=== PATIENT | female | born 1980 | race Caucasian/White ===

== ENCOUNTER → 2021-06-26 16:50 | Outpatient (CLI) | payer OTHER, SELFPAY ==
--- NOTE | ~2021-06-26 | MM_ITS ---
EXAMINATION: MM screening lydia BI w chacorta HISTORY: Screening mammogram TECHNIQUE: Craniocaudal and mediolateral oblique 3-D tomosynthesis images were obtained and synthetic 2-D images were generated. CAD analysis was submitted and interpreted. COMPARISON: 07/18/2015 bilateral screening mammogram BREAST PARENCHYMAL COMPOSITION: The breasts are heterogeneously dense, which may obscure small masses . FINDINGS: There is no evidence of suspicious mass, calcification, or architectural distortion to sugg est malignancy in either breast. There has been no suspicious interval change. IMPRESSION: 1. No mammographic evidence of malignancy. 2. Recommend routine screening mammography in one year. BI-RADS Category 1: Negative Reviewed, dictated and finalized at location A. N RESOURCES MGR
== END ==
PROVIDERS: Visit Provider Nurse Practitioner
DX: Z12.31 Encounter for screening mammogram for malignant neoplasm of breast (principal)
CPT/HCPCS: 77063; 77067

== ENCOUNTER 2023-10-22 07:22 | Outpatient (CLI) | payer OTHER, SELFPAY ==
--- NOTE | ~2023-10-22 | MM_ITS ---
EXAMINATION: MM screening lydia BI w chacorta HISTORY: Screening mammogram TECHNIQUE: Craniocaudal and mediolateral oblique 3-D tomosynthesis images were obtained and synthetic 2-D images were generated. CAD analysis was submitted and interpreted. COMPARISON: 06/26/2021, 07/18/2015 bilateral screening mammogram examinations BREAST PARENCHYMAL COMPOSITION: The breasts are heterogeneously dense, which may obscure small masses . FINDINGS: Is increased density in the subareolar area of the right breast particularly on CC projecti on compared to 06/26/2021. Diagnostic right mammogram is recommended, with ultrasound if required. Otherwise no suspicious mass,, architectural distortion, malignant calcification, skin thickening or retraction or significant new or developing density of either breast is noted. IMPRESSION: 1. Interval increased density overlying right subareolar area on craniocaudal view compared to 2020 2. Diagnostic right mammogram is recommended, with ultrasound if required BI-RADS Category 0: Incomplete: Needs additional imaging evaluation. Reviewed, dictated and finalized at location A. IMPRESSION: 1. Interval increased density overlying right subareolar area on craniocaudal v iew compared to 06/26/2021 2. Diagnostic right mammogram is recommended, with ultrasound if required BI-RADS Category 0: Incomplete: Needs additional imaging evaluation.
== END 2023-10-22 07:23 ==
LOC: MICIMG 07:23
PROVIDERS: PCP Nurse Practitioner; Visit Provider Nurse Practitioner
DX: Z12.31 Encounter for screening mammogram for malignant neoplasm of breast (principal); R92.8 Other abnormal and inconclusive findings on diagnostic imaging of breast
CPT/HCPCS: 77063; 77067

== ENCOUNTER 2023-11-29 12:43 | Outpatient (CLI) | payer OTHER, SELFPAY ==
--- NOTE | ~2023-11-29 | MMUS_ITS ---
EXAMINATION: MM diagnostic lydia RT w chacorta, US breast RT complete HISTORY: Interval increased density overlying right subareolar area on the screening craniocaudal vie w of 10/22/2023 since 06/26/2021 TECHNIQUE: Additional 3-D tomosynthesis images of the right breast were performed and synthetic 2-D i mages were generated. CAD analysis was submitted and interpreted. High resolution complete right ava st ultrasound examination, and all 4 quadrants and subareolar area was performed. COMPARISON: 10/22/2023 bilateral screening mammogram 06/26/2021 bilateral screening mammogram FINDINGS: MAMMOGRAPHIC FINDINGS: No suspicious mass or architectural distortion or significant new or developing density is noted upon comparison with prior mammograms dating back to 06/26/2021. ULTRASOUND: 12:00 6 cm from nipple: 2.3 x 2.5 mm relatively hypoechoic area with adjacent vessels on color flow imaging caliber without suspicious shadowing. Six-month follow-up targeted ultrasound dislocation is recommended. 7:00 near nipple: Mild prominence of ducts 9:00 3 cm from nipple: Small area of hypoechogenicity likely a normal tissue interface. 6 month targe nicole ultrasound follow-up at this location is recommended. IMPRESSION: 1. Probable benign findings 2. Six-month targeted ultrasound follow-up is recommended on the right at 12:00 6 cm from nipple and 9:00 3 cm from nipple BI-RADS category 3, probably benign findings. Reviewed, dictated and finalized at location A. IMPRESSION: 1. Probable benign findings 2. Six-month targeted ultrasound follow-up is recommended on the right at 12:00 6 cm from nipple and 9:00 3 cm from nipple BI-RADS category 3, probably benign findings.
== END 2023-11-29 12:44 | disposition home or self-care (01) ==
LOC: ANHIMG 12:49
PROVIDERS: PCP Nurse Practitioner; Visit Provider Obstetrics & Gynecology Gynecology
DX: R92.8 Other abnormal and inconclusive findings on diagnostic imaging of breast (principal)
CPT/HCPCS: 76641; 77061; 77065; G0279

== ENCOUNTER 2024-07-31 13:14 | Outpatient (CLI) | payer OTHER, SELFPAY ==
--- NOTE | ~2024-07-31 | US_ITS ---
EXAMINATION TYPE: US breast RT limited COMPARISON: 11/29/2023 REASON FOR STUDY: 6month follow up TECHNIQUE: Targeted sonographic evaluation of the right breast was performed. INTERPRETATION: At the 12:00 position right breast, 6 cm from the nipple, there is a stable 3 mm hypoechoic somewhat rounded mass. Stable minimal prominence of ducts at the 9:00 position right breast, 3 cm from the nip ple. No suspicious mass evident. IMPRESSION: Stable 3 mm hypoechoic structure at 12 position right breast, as detailed above. This is most compati ble with a benign finding. BI-RADS CATEGORY: BI-RADS 2: Benign Reviewed, dictated and finalized at location . ILITY ENGINEER IMPRESSION: Stable 3 mm hypoechoic structure at 12 position right breast, as detailed above . This is most compatible with a benign finding. BI-RADS CATEGORY: BI-RADS 2: Benign
== END 2024-07-31 13:15 | disposition home or self-care (01) ==
LOC: ANHIMG 13:19
PROVIDERS: PCP Nurse Practitioner; Visit Provider Obstetrics & Gynecology Gynecology
DX: R92.8 Other abnormal and inconclusive findings on diagnostic imaging of breast (principal)
CPT/HCPCS: 76642

== ENCOUNTER 2025-04-27 12:16 | Outpatient (CLI) | payer OTHER, SELFPAY ==
--- NOTE | ~2025-04-27 | MM_ITS ---
EXAMINATION: MM screening lydia BI w chacorta HISTORY: Screening TECHNIQUE: Craniocaudal and mediolateral oblique 3-D tomosynthesis images were obtained and synthetic 2-D images were generated. CAD analysis was submitted and interpreted. COMPARISON: Comparison to multiple prior studies sequentially, with oldest reviewed study dated 07/18/2015. BREAST PARENCHYMAL COMPOSITION: Dense: The breasts are heterogeneously dense, which may obscure small masses FINDINGS: There is no evidence of suspicious mass, calcification, or architectural distortion to suggest malignancy in either breast. There has been no suspicious interval change. IMPRESSION: 1. No mammographic evidence of malignancy. 2. Recommend routine screening mammography in one year. BI-RADS Category 1: Negative Reviewed, dictated and finalized at location B.
--- OUTSIDE RECORDS SUMMARY | 2025-04-27 12:20 | XMS_ITS | Clinical Summary ---
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 Gender Identity Not on file Sexual Orientation Not on file Plan of Treatment Health Maintenance Due Date Last Done Comments Colorectal Cancer Screening Colonoscopy (10 Years) 1979 Annual Physical 1982 Hepatitis C 1997 DTaP, Tdap and Td Vaccines ( 1 - Tdap) 1998 Hepatitis B Vaccines (1 of 3 - 19+ 3-dose series) 1998 Cervical Cancer Screening Pa p Smear (Age 30 to 64) Every 3 Years 12/15/2005 12/15/2002 HPV Vaccines (1 - 3-dose SCD M series) 2006 Cervical Cancer Screening Pa p with HPV Testing (Age 30 to 64) Every 5 Years 2009 Cervical Cancer Screening with HPV 2009 Mammogram Screening 2019 COVID-19 Vaccine (2023-2 5 season) 2025 Meningococcal B Vaccine Aged Out No l onger eligible based on patient's age to complete this topic Meningococcal Vaccine Aged Out No michael geraldine eligible based on patient's age to complete this topic Pneumococcal Vaccine: Pediat rics (0 to 5 Years) and At-Risk Patients (6 to 49 Years) Aged Out No longer eligi ble based on patient's age to complete this topic RSV Immunizations Under 20 Months Aged Out No longer eligible based on patient's age to complete this topic Procedures Procedure Name Priority Date/Time Associated Diagnosis Comments OUTSIDE CYTOPATH CERV/VAG IN TERPRET (PAP) (SCAN ORDER) Routine 12/15/2002 from Last 3 Months or Most Recently Relevant to Health Maintenance Results * PAP SMEAR (12/15/2002) 12/15/2002 us Documents Scanned SCANNING Edited Result - Final [facility] from Last 3 Months or Most Recently Relevant to Health Maintenance
--- OUTSIDE RECORDS SUMMARY | 2025-04-27 12:20 | XMS_ITS | Encounter Summary ---
Author Organization [facility] Address [address] [place] [address] Care Team Providers Care Air Transport Professionals Name Role Phone Igor Silva MD Primary Care Provider [phone] Encounter Details Date Type Department Care Team (Late st Contact Info) Description 12/01/2019 Lab Requisition [facility] DermPath Lab [address] [place] [id number] Dalton Stephenson MD [address] [place] [phone] Social History Tobacco Use Types Packs/Day Years Used Date Smoking Tobacco: Never Comments Unknown Sex and Gender Information Value Date Recorded Sex Assigned at Not on file Legal Sex Female 9:49 AM CDT Gender Identity Not on file Sexual Orientation Not on file documented as of this encounter Plan of Treatment Not on file documented as of this encounter Procedures Procedure Name Priority Date/Time Associated Diagnosis Comments DERMATOPATHOLOGY Routine 11/30/2019 12:0 0 AM CDT documented in this encounter Results * DERMATOPATHOLOGY (11/30/2019 12:00 AM CDT) Case Report Dermatopathology Report Case: [id number] Authorizing Provider: Dalton Stephenson MD Collected: 11/30/2019 12:00 AM Ordering Location: [facility] DermPath Lab Received: 12/01/2019 08:06 AM Pathologist: Lawanda Rosa MD Specimen: Skin, mid back 0 2:51 PM CDT DERMATOPATHOLOGY LABORATORY Final Diagnosis Specimen A. SKIN, mid back: COMPOUND NEVUS WITH CONGENITAL FEATURES (D22.5) 0 2:51 PM CDT DERMATOPATHOLOGY LABORATORY at 1451 CDT Clinical History Nevus, angioma, NF, R/O BCC. 0 2:51 PM CDT DERMATOPATHOLOGY LABORATORY Gross Description Specimen A: Received is one formalin filled container labeled with the patient's name and designated mid back. The specimen consists of a shave biopsy measuring [id number]. Jar 0. 0 2:51 PM CDT DERMATOPATHOLOGY LABORATORY Microscopic Description Specimen A. SKIN, mid back: There are nests of melanocytes at the dermal-epidermal junction and within the dermis. Some melanocytes are splayed between collagen bundles and are localized around adnexal structures. 0 2:51 PM CDT DERMATOPATHOLOGY LABORATORY Disclaimer An external and internal positive and negative controls are appropriate for the histochemical, immunohistochemical and immunofluorescence stain(s) in this case (if any), except where stated explicitly. The performance characteristics of the stain(s) cited in this report were developed and its performance characteristic determined by the Dermatopathology Laboratory at [facility], directed by Dr. Simin Rowe. These tests need not be, and therefore are not, approved by the [place] Food and Drug Administration. The tests are used for clinical purposes. Billing Codes Specimen Charges Stain Charges 44437 1 0 2:51 PM CDT DERMATOPATHOLOGY LABORATORY Embedded Images 0 2:51 PM CDT DERMATOPATHOLOGY LABORATORY Pathology/Cytolog y TISSUE SPECIMEN FROM SKIN / Unknown 11/30/2019 12/01/2019 8:06 AM CDT us Dalton Stephenson MD LAB - PATHOLOGY/CYTOLOGY ORDERAB LES Final Result DERMATOPATHOLOGY LABORATORY [facility] - Department of Dermatology [address], [address] [place] [address], [facility] [phone] documented in this encounter Visit Diagnoses Not on filedocumented in this encounter Care Teams Air Transport Professionals Relationship Specialty Start Date End Date Igor Silva MD [address] [facility] [place] [address] PCP - General Family Medicine 11/03/16 documented as of this encounter
--- OUTSIDE RECORDS SUMMARY | 2025-04-27 12:20 | XMS_ITS | Encounter Summary ---
Author Organization [facility] Address [address] [facility] [place] [address] Care Team Providers Care Model Set Artist Name Role Phone Igor Silva MD Primary Care Provider [phone] Encounter Details Date Type Department Care Team (Late st Contact Info) Description 12/10/2018 Lab Requisition [facility] DermPath Lab [address] [facility] [place] [phone] Dalton Stephenson MD [address] [place] [phone] Social History Tobacco Use Types Packs/Day [...] Priority Date/Time Associated Diagnosis Comments DERMATOPATHOLOGY Routine 12/08/2018 12:0 0 AM CDT documented in this encounter Results * DERMATOPATHOLOGY (12/08/2018 12:00 AM CDT) Case Report Dermatopathology Report Case: [id number] Authorizing Provider: Dalton Stephenson MD Collected: 12/08/2018 12:00 AM Pathologist: Charo Rowe MD Received: 12/10/2018 07:00 AM Specimens: A) - Skin, right posterior neck upper B) - Skin, right posterior neck lower C) - Skin, left back 4:23 PM CDT DERMATOPATHOLOGY LABORATORY Final Diagnosis Specimen A. SKIN, right posterior neck upper: COMPOUND MELANOCYTIC NEVUS (D22.4) Specimen B. SKIN, right posterior neck lower: INTRADERMAL MELANOCYTIC NEVUS (D22.4) (see microscopic description) Specimen C. SKIN, left back: COMPOUND MELANOCYTIC NEVUS (D22.5) 4:23 PM T DERMATOPATHOLOGY LABORATORY at 1623 CDT Clinical History A-C: Nevus R/O BCC. 4:23 PM CDT DERMATOPATHOLOGY LABORATORY Gross Description Specimen A: Received is one formalin filled container labeled with the patient's name and designated right posterior neck upper. The specimen consists of a shave biopsy measuring [id number]. Jar 0. Specimen B: Received is one formalin filled container labeled with the patient's name and designated right posterior neck lower. The specimen consists of a shave biopsy measuring 3l2t4hg. Jar 0. Specimen C: Received is one formalin filled container labeled with the patient's name and designated left back. The specimen consists of a shave biopsy measuring 1x6a2qc. Jar 0. 4:23 PM CDT DERMATOPATHOLOGY LABORATORY Microscopic Description Specimen A. SKIN, right posterior neck upper: There are nests of melanocytes at the dermal-epidermal junction and within the dermis. Specimen B. SKIN, right posterior neck lower: There are nests of cytologically bland melanocytes within the dermis that mature with depth. Additional deeper sections were obtained and reviewed. Specimen C. SKIN, left back: There are nests of melanocytes at the dermal-epidermal junction and within the dermis. 4:23 PM CDT DERMATOPATHOLOGY LABORATORY Disclaimer An external and internal positive and negative controls are appropriate for the histochemical, immunohistochemical and immunofluorescence stain(s) in this case (if any), except where stated explicitly. The performance characteristics of the stain(s) cited in this report were developed and its performance characteristic determined by the Dermatopathology Laboratory at [facility], directed by Dr. Simin Rowe. These tests need not be, and therefore are not, approved by the [place] Food and Drug Administration. The tests are used for clinical purposes. Billing Codes Specimen Charges Stain Charges 96814 38492 66913 1 1 1 9 4:23 PM CDT DERMATOPATHOLOGY LABORATORY Embedded Images 9 4:23 PM CDT DERMATOPATHOLOGY LABORATORY Pathology/Cytology TISSUE SPECIMEN FROM SKIN / Unknown 12/08/2018 12/10/2018 7:00 AM CDT Miscellaneous samples (specimen) TISSUE SPECIMEN FROM SKIN / Unknown 12/08/2018 12/10/2018 7:00 AM CDT Miscellaneous samples (specimen) TISSUE SPECIMEN FROM SKIN / Unknown 12/08/2018 12/10/2018 7:00 AM CDT us Dalton Stephenson MD LAB - PATHOLOGY/CYTOLOGY ORDERAB LES Final Result DERMATOPATHOLOGY LABORATORY [facility] - Department of Dermatology [address] [place] [address] 5th Floor Lab [address] [phone] documented in this encounter Visit Diagnoses Not on filedocumented in this encounter Care Teams Model Set Artist Relationship Specialty Start Date End Date Igor Silva MD [address] [place] [address] PCP - General Family Medicine 11/03/16 documented as of this encounter
--- OUTSIDE RECORDS SUMMARY | 2025-04-27 12:20 | XMS_ITS | Clinical Summary ---
Author Organization [facility] Address [address] [facility] [place] [address] Care Team Providers Care Foundation Digger Name Role Phone Igor Silva MD Primary Care Provider [phone] Source Comments [facility],non-owned Affiliates and Associated Physician Practices is amultiple site organization consisting of ambulatory clinics and hospital sitesin [place], [place], [place] and [place]. This disclosure is being madepursuant to the Care Everywhere program and may not contain all information available regarding this patient. Last updated 18.[facility] Allergies Active Allergy Reactions Criticality Noted Date Comments Codeine 11/03/2016 Penicillins 11/03/2016 Medications * Be aware that medications may not be up to date on this document. Alwaysverify current medications with the patient. azithromycin (ZITHROMAX) 250 MG tabletIndicatio ns:Pharyngitis Take 2 tablets now, then 1 tablet daily for 4 days. Reasons: Throat Infection 6 Tab 7 Active Social History Tobacco Use Types Packs/Day Years Used Date Smoking Tobacco: Never Comments Unknown Sex and Gender Information Value Date Recorded Sex Assigned at Not on file Legal Sex Female 9:49 AM CDT Gender Identity Not on file Sexual Orientation Not on file Last Filed Vital Signs Vital Sign Reading Time Taken Comments Blood Pressure 122/86 11/03/2016 3:23 PM CDT Pulse 93 11/03/2016 3:23 PM CDT Temperature 37.1 C (98.8 F) 11/03/2016 3:23 PM CDT Respiratory Rate 16 11/03/2016 3:23 PM CDT Oxygen Saturation 96% 11/03/2016 3:23 PM CDT Inhaled Oxygen Concentration - - Weight 56.7 kg (125 lb) 11/03/2016 3:23 PM CDT Height 157.5 cm (5' 2) 11/03/2016 3:23 PM CDT Body Mass Index 22.86 11/03/2016 3:23 PM CDT Plan of Treatment Health Maintenance Due Date Last Done Comments COLOGUARD (AGES 45-75) - COL ON CA SCREENING 1979 COLON MONITORING 1979 COLONOSCOPY - COLON CA SCREENING 1979 CT COLONOGRAPHY - COLON CA SCREENING 1979 Colorectal Cancer Screening 1979 FIT - COLON CA SCREENING 1979 FLEX SIG - COLON CA SCREENING 1979 LIPID TESTING 1979 MAMMOGRAM 1979 HIV SCREENING 1994 HEPATITIS C SCREENING 08/17/1997 DTAP/TDAP/TD VACCINES (1 - Tdap) 1998 HEPATITIS B VACCINE (1 of 3 - 19+ 3-dose series) 1998 HPV VACCINE (1 - 3-dose SCDM series) 2006 DEPRESSION SCREENING 07/29/2024 COVID-19 VACCINE (1 - 2023-2 5 season) 2025 INFLUENZA VACCINE (#1) 2025 ZOSTER VACCINE (1 of 2) 2029 HIB VACCINE Aged Out No longer eligi ble based on patient's age to complete this topic MENINGOCOCCAL (Group B) VACC INE SHARED DECISION-MAKING Aged Out No longer eligibl e based on patient's age to complete this topic MENINGOCOCCAL GROUPS A/C/Y/W VACCINE Aged Out No longer eligible b ased on patient's age to complete this topic PNEUMOCOCCAL VACCINE Aged Out No long er eligible based on patient's age to complete this topic Insurance [facility] Care Teams Foundation Digger Relationship Specialty Start Date End Date Igor Silva MD [facility] [place] [address] PCP - General Family Medicine 11/03/16
== END 2025-04-27 12:17 | disposition home or self-care (01) ==
LOC: CHSIMG 12:17
PROVIDERS: PCP Family Medicine; Visit Provider Nurse Practitioner
DX: Z12.31 Encounter for screening mammogram for malignant neoplasm of breast (principal)
CPT/HCPCS: 77063; 77067